=== PATIENT | female | born 1965 | race African-American/Black ===

== ENCOUNTER 2018-01-07 11:27 | Outpatient (CLI) | payer MEDICARE ==
--- NOTE | 2018-01-07 14:42 | RAD ---
LUMBAR SPINE FLEXION AND EXTENSION VIEWS: HISTORY: Low back pain. FINDINGS: Vertebral body heights are maintained. Osteophytosis is present throughout the facets. Posterior fi xation hardware is present at the upper sacrum. There is 0.5 cm spondylolisthesis of the L4-5 level but does not change significantly upon flexion or extension. IMPRESSION: Degenerative and postoperative changes lumbar spine as detailed above. POS: [facility]
== END 2018-01-07 11:28 | disposition home or self-care (01) ==
LOC: RAD 11:27
PROVIDERS: ATTEND Specialist
DX: M43.16 Spondylolisthesis, lumbar region (principal); M47.896 Other spondylosis, lumbar region; Z98.890 Other specified postprocedural states
CPT/HCPCS: 72100

== ENCOUNTER 2018-01-30 12:59 | Outpatient (CLI) | payer MEDICARE | END 2018-01-30 13:00 | disposition home or self-care (01) | LOC: BICMRI 12:59 | PROVIDERS: ATTEND Specialist | DX: M43.16 Spondylolisthesis, lumbar region (principal); M54.12 Radiculopathy, cervical region; M47.896 Other spondylosis, lumbar region; M99.81 Other biomechanical lesions of cervical region | CPT/HCPCS: 72141; 72148 ==

== ENCOUNTER 2019-09-21 11:29 | Outpatient (CLI) | payer MEDICARE ==
--- NOTE | 2019-09-21 12:02 | RAD ---
3 views of the lumbar spine: 09/21/2019 COMPARISON: 01/07/2018 HISTORY: Spondylolisthesis FINDINGS: Metallic postoperative hardware is seen posterior to the posterior elements at the lumbosac ral junction, stable. Neutral lateral imaging demonstrates anterolisthesis of L4 on L5 measuring approximately 6 mm. On the extension imaging and the flexion imaging the anterolisthesis of L4 on L5 is unchanged. Multilevel lower lumbar spine facet hypertrophy. Laminectomy changes are noted at L5 IMPRESSION: Postoperative and degenerative change within the lumbar spine as detailed above.
== END 2019-09-21 11:30 | disposition home or self-care (01) ==
LOC: RAD 11:29
PROVIDERS: ATTEND Nurse Practitioner Family
DX: M43.16 Spondylolisthesis, lumbar region (principal); M47.816 Spondylosis without myelopathy or radiculopathy, lumbar region; Z98.890 Other specified postprocedural states
CPT/HCPCS: 72100

== ENCOUNTER 2019-10-14 10:22 | Outpatient (CLI) | payer MEDICARE ==
--- NOTE | 2019-10-14 12:22 | MRI ---
LUMBAR SPINE MRI WITHOUT CONTRAST: DATE: 10/14/2019. COMPARISON: None. HISTORY: Spondylolisthesis, low back pain. TECHNIQUE: Multiplanar, multisequence MR imaging of the lumbar spine is provided without contrast media. FINDINGS: There is artifact associated with metallic hardware at L4-5 and L5-S1 level. Associated artifact sli ghtly limits detailed assessment for central canal and neural foraminal stenosis in these regions. Incidental note is made of nonspecific small volume free fluid within the lower abdomen and pelvis ad jacent to the psoas musculature bilaterally, right greater than left. There is an irregular lobulate d mass within the pelvis suggesting an enlarged irregular fibroid uterus. The sagittal STIR imaging demonstrates no focal area of osseous marrow edema. No anterolisthesis or retrolisthesis is apparent on this examination. On the basis of 5 lumbar-type vertebral bodies, the conus medullaris terminates at the L2-3 level. T12-L1: Mild disk space narrowing with mild disk desiccation. No significant central canal or neura l foraminal stenosis. L1-2: Intervertebral disk height and signal intensity within normal limits. Mild bilateral facet hy pertrophy with no significant central canal or neural foraminal stenosis. L2-3: Intervertebral disk height and signal intensity within normal limits. Mild bilateral facet hy pertrophy. No significant central canal or neural foraminal stenosis. L3-4: Prominent bilateral facet hypertrophy with fluid within bilateral facet joints. There is disk space narrowing with disk desiccation and mild disk bulge leading to mild central canal stenosis. T here is mild bilateral neural foraminal stenosis. L4-5: Prominent bilateral facet hypertrophy. There is disk space narrowing and disk desiccation wit h mild disk bulge and mild central canal stenosis. Mild bilateral neural foraminal stenosis. L5-S1: There is mild bilateral facet hypertrophy. There is disk space narrowing with no significant central canal or neural foraminal stenosis. The imaged retroperitoneal structures demonstrate no acute findings. IMPRESSION: 1. Lower lumbar spine postoperative and degenerative change. Fluid within facet joints at L3-4 note d, which may be seen on the basis of instability. Flexion and extension radiographs could best asses s these findings. 2. Small volume fluid within the lower abdomen. Incompletely imaged lobulated mass in the pelvis coyle ggests an enlarged fibroid uterus. Correlation with pelvic ultrasound may be beneficial. POS: [facility]
== END 2019-10-14 10:23 | disposition home or self-care (01) ==
LOC: BICMRI 10:22
PROVIDERS: ATTEND Nurse Practitioner Family
DX: M43.16 Spondylolisthesis, lumbar region (principal); M47.816 Spondylosis without myelopathy or radiculopathy, lumbar region; Z98.890 Other specified postprocedural states
CPT/HCPCS: 72148